=== PATIENT | male | born 1965 | race Caucasian/White ===

== ENCOUNTER 2017-07-18 02:39 | Observation (INO) | payer MEDICAID, SELFPAY ==
[~2017-07-18] VITALS: Ht 188 cm; Wt 89.9 kg
[2017-07-18 03:41] LABS: BASOPHILS # (AUTO) 0.05 x10^3/uL (0-0.1); BASOPHILS % (AUTO) 1 % (0-1); EOSINOPHILS # (AUTO) 0.25 x10^3/uL (0-0.4); EOSINOPHILS % (AUTO) 2 % (1-7); LYMPHOCYTES # (AUTO) 1.47 x10^3/uL (1-3.4); LYMPHOCYTES % (AUTO) 13 % (22-44); MD NO; MEAN CORPUSCULAR HEMOGLOBIN 33.2 pg (27.5-34.5); MEAN CORPUSCULAR HGB CONC 33.8 g/dL (33.2-36.2); MEAN CORPUSCULAR VOLUME 98.3 fL (81-97); MONOCYTES # (AUTO) 1.08 x10^3/uL (0.2-0.8); MONOCYTES % (AUTO) 10 % (2-9); NEUTROPHILS # (AUTO) 8.46 x10^3/uL (1.8-6.8); NEUTROPHILS % (AUTO) 75 % (42-75); PLATELET COUNT 240 x10^3/uL (130-400); RED BLOOD COUNT 3.51 x10^6/uL (4.38-5.82); RED CELL DISTRIBUTION WIDTH 12.7 % (9.4-14.8)
[2017-07-18 03:52] LABS: ALBUMIN 3.3 g/dL (3.4-5.0); ANION GAP 8 mmol/L (5-15); CALCIUM 7.6 mg/dL (8.5-10.1); CHLORIDE 103 mmol/L (98-107); CREATININE 0.96 mg/dL (0.7-1.3)
[2017-07-18 04:04] LABS: ACETAMINOPHEN < 2 mcg/mL (10-30); SALICYLATE LEVEL < 1.7 mg/dL (2.8-20.0)
[2017-07-18] MEDS ORDERED: RISP1TAB45 PO (06:45)
[2017-07-18 08:13] LABS: AMPHETAMINE SCREEN, URINE Negative (Negative); BARBITURATE SCREEN, URINE Negative (Negative); BENZODIAZEPINE SCREEN, URINE Negative (Negative); CANNABINOID SCREEN, URINE Negative (Negative); COCAINE SCREEN, URINE Negative (Negative); METHADONE SCREEN, URINE Negative (Negative); OPIATE SCREEN, URINE Negative (Negative)
[2017-07-18] MEDS ORDERED: ACETAMINOPHEN 325 MG TABLET PO PRN (08:30)
[2017-07-18] MEDS ORDERED: DOCUSATE 100 MG CAPSULE PO PRN (08:30)
[2017-07-18] MEDS ORDERED: ONDANSETRON ODT 4 MG PO PRN (08:30)
[2017-07-18 08:33] LABS: FREE T4 (FREE THYROXINE) 1.04 ng/dL (0.76-1.46); THYROID STIMULATING HORMONE 0.817 mIU/L (0.358-3.740)
[2017-07-18 09:08] VITALS: BP 128/83
[2017-07-18] MEDS: RISPERIDONE 2 MG TABLET PO SCH ×2 (09:15→20:28)
[2017-07-18] MEDS: LORazepam 1MG TABLET PO PRN ×2 (09:33→20:28)
[2017-07-18 09:44] LABS: MICROSCOPIC NOT IND
[2017-07-18 09:45] LABS: CULTURE INDICATED? NO
[2017-07-18 19:25] VITALS: BP 125/78
[2017-07-19 08:00] VITALS: BP 115/74
[2017-07-19] MEDS ORDERED: ERGOCALCIFEROL 50,000 UNIT CAPSULE PO SCH (08:00)
[2017-07-19] MEDS: RISPERIDONE 2 MG TABLET PO SCH ×2 (08:50→20:03)
[2017-07-19 19:37] VITALS: BP 110/72
[2017-07-19] MEDS: LORazepam 1MG TABLET PO PRN (20:26)
[2017-07-20 08:08] VITALS: BP 117/73
[2017-07-20] MEDS: RISPERIDONE 2 MG TABLET PO SCH ×2 (08:15→19:54)
[2017-07-20] MEDS: LORazepam 1MG TABLET PO PRN (19:56)
[2017-07-20 20:00] VITALS: BP 117/72
[2017-07-21 07:46] VITALS: BP 113/75
[2017-07-21] MEDS: RISPERIDONE 2 MG TABLET PO SCH ×2 (08:26→20:00)
[2017-07-21] MEDS ORDERED: RISP1TAB45 PO (12:21)
[2017-07-21] MEDS ORDERED: ERGO500017 PO (12:21)
[2017-07-21 19:32] VITALS: BP 120/79
== END 2017-07-22 06:25 | disposition home or self-care (01) ==
LOC: ED 05:13 → EDIP 06:20 → UNDOADMOB 07:38 → EDIP 07:38 → 2N 08:58
PROVIDERS: ADMIT Family Medicine; ATTEND Family Medicine
DX: F25.9 Schizoaffective disorder, unspecified (principal); R45.851 Suicidal ideations; F32.9 Major depressive disorder, single episode, unspecified; Z79.899 Other long term (current) drug therapy; Z59.0 Homelessness; Z87.891 Personal history of nicotine dependence
CPT/HCPCS: 36415; 80048; 80307; 80329; 81003; 82040; 82306; 82607; 84439; 84443; 85025; 99285; G0378; G0480